=== PATIENT | male | born 1980 | race Caucasian/White ===

== ENCOUNTER 2017-12-14 11:46 | Emergency (ER) | payer OTHER, SELFPAY ==
[2017-12-14 11:47] VITALS: BP 147/88; PULSE 46; PULSE 49; RESP 18; TEMP 36.4; O2SAT 97; BMI 24.3
--- NOTE | 2017-12-14 12:18 | DCINST.ED_ITS ---
ED Disposition - Plan for ED Patient: Disposition: Home or Assisted Living Chief Complaint: Laceration Instructions: ED Laceration Hand Referrals: [facility] Doctor,Out of [Primary Care Provider] - 10 Day for suture removal
--- NOTE | 2017-12-14 12:18 | ED.DCSUM_ITS ---
- ER Visit Summary Date of Service: 12/14/17 Chief Complaint: Right hand laceration History of Present Illness: The patient is a 37 M who cut his right hand on a piece of metal on a tour bus. He was pushing luggage into the luggage compartment. He is right-hand dominant. He is unsure of his last tetanus. Physical Examination: Vital signs are unremarkable. Patient is in no acute distress. Right upper extremity examination reveals a 3 cm laceration across the right third MCP joint. He has full range of motion with normal cap refill and sensation. Test Results: [] Emergency Department Course and Treatment: Tetanus update is provided. Wound is locally anesthetized with 2 cc 1% lidocaine. Wound is thoroughly irrigated. 5 simple interrupted sutures of 5-0 nylon are placed with good approximation. Patient has good range of motion following suture. Wound instructions were discussed. He will have sutures removed in 7-10 days. Treatment Plan: [] Disposition: Discharge Impression: Right hand laceration status post suture This note was generated with [employer] dictation software. It may contain incorrect words, spelling, and punctuation that were not noted in review of the chart prior to signing ED Disposition - Plan for ED Patient: Chief Complaint: Laceration Referrals: [facility] Doctor,Out of [Primary Care Provider] -
[2017-12-14] MEDS: Diphth,Pertuss(Acell),Tet Vac 0.5 ML Vial IM (12:21)
== END 2017-12-14 12:53 | disposition home or self-care (01) ==
PROVIDERS: Emergency Provider Emergency Medicine
DX: S61.411A Laceration without foreign body of right hand, initial encounter (principal); W45.8XXA Other foreign body or object entering through skin, initial encounter; Y93.89 Activity, other specified; Y92.811 Bus as the place of occurrence of the external cause; Y99.9 Unspecified external cause status; Z23 Encounter for immunization
CPT/HCPCS: 12002; 90471; 90715; 99283